=== PATIENT | male | born 1990 | race Caucasian/White ===

== ENCOUNTER 2017-10-30 16:45 | Emergency (ER) | payer MEDICAID, OTHER ==
[~2017-10-30] VITALS: Ht 170.2 cm; Wt 65.9 kg
[~2017-10-30 16:45] MED LIST: HYDR-565 PO
[2017-10-30 16:47] VITALS: BP 123/66
[2017-10-30] MEDS ORDERED: mupirocin 2% ointment 22GM TP STA ×2 (17:07→18:42)
[2017-10-30] MEDS ORDERED: morphine 4 MG/ML inj SYRINge IM ONE (17:10)
[2017-10-30] MEDS ORDERED: TETanus/Pertussis (Acell)/Diphther VAC/PF (Tdap-Adult) 0.5ml syringe IM ONE (17:10)
[2017-10-30] MEDS ORDERED: cephalexin 250mg capsule PO ONE (17:10)
[2017-10-30] MEDS ORDERED: ondansetron 4mg rapidly disintigrating tab PO ONE (17:10)
[2017-10-30] MEDS ORDERED: erythromycin ophthalmic ointment 1gm tube LEFTEYE ONE (17:10)
[2017-10-30] MEDS ORDERED: ERYT1OIN6 LEFTEYE (17:49)
[2017-10-30] MEDS ORDERED: CEPH500C5 PO (17:49)
[2017-10-30] MEDS ORDERED: MUPI22OI30 TOP (17:49)
[2017-10-30] MEDS ORDERED: HYDR-565 PO (17:49)
== END 2017-10-30 19:07 | disposition home or self-care (01) ==
LOC: ER 16:46
DX: T20.30XA Burn of third degree of head, face, and neck, unspecified site, initial encounter (principal); T26.02XA Burn of left eyelid and periocular area, initial encounter; X08.8XXA Exposure to other specified smoke, fire and flames, initial encounter; Y93.89 Activity, other specified; Y92.89 Other specified places as the place of occurrence of the external cause; Y99.8 Other external cause status
CPT/HCPCS: 16020; 90471; 90715; 96372; 99284; A6255; A6257; A6449; J2270

== ENCOUNTER 2017-10-31 13:11 | Emergency (ER) | payer OTHER ==
[~2017-10-31] VITALS: Ht 170.2 cm; Wt 65.9 kg
[~2017-10-31 13:11] MED LIST changes: +CEPH500C5 PO; +ERYT1OIN6 LEFTEYE; +MUPI22OI30 TOP
[2017-10-31 13:20] VITALS: BP 126/77
== END 2017-10-31 17:07 | disposition left against medical advice (07) ==
LOC: ER 13:12
DX: T20.00XA Burn of unspecified degree of head, face, and neck, unspecified site, initial encounter (principal); Z53.21 Procedure and treatment not carried out due to patient leaving prior to being seen by health care provider; X08.8XXA Exposure to other specified smoke, fire and flames, initial encounter; Y93.89 Activity, other specified; Y92.89 Other specified places as the place of occurrence of the external cause; Y99.8 Other external cause status

== ENCOUNTER 2023-06-22 18:01 | Emergency (ER) | payer MEDICAID, OTHER ==
[~2023-06-22] VITALS: Ht 170.2 cm; Wt 70.5 kg
[~2023-06-22 18:01] MED LIST changes: -CEPH500C5 PO; -ERYT1OIN6 LEFTEYE; +HYDR-4353 PO; -HYDR-565 PO; -MUPI22OI30 TOP
[2023-06-22 18:10] VITALS: BP 158/83; PULSE 86; RESP 18; TEMP 97.6; O2SAT 99
== END 2023-06-22 19:25 ==
LOC: ER 18:01
DX: V89.2XXA Person injured in unspecified motor-vehicle accident, traffic, initial encounter; Y93.89 Activity, other specified; Y92.89 Other specified places as the place of occurrence of the external cause; Y99.8 Other external cause status
CPT/HCPCS: 99283